=== PATIENT | female | born 1970 | race Caucasian/White ===

== ENCOUNTER 2018-07-05 21:41 | Emergency (ER) | payer OTHER, SELFPAY ==
[2018-07-05 21:55] VITALS: BP 134/56; PULSE 91; RESP 18; TEMP 36.7; O2SAT 100; BMI 22.6
[2018-07-05] MEDS: TRIMETH/SULFA 160/800 (DS) TABLET 1 TAB PO (22:43)
[2018-07-05 22:47] VITALS: PULSE 84; RESP 18; TEMP 37.1; O2SAT 100
--- NOTE | 2018-07-06 06:26 | ED_ITS ---
HPI - Female Genitourinary General Chief complaint: Urogenital-Female Stated complaint: thinks she has a UTI Time Seen by Provider: 07/05/18 22:12 Source: patient Mode of arrival: ambulatory Limitations: no limitations History of Present Illness HPI Narrative: 47-year-old former smoker otherwise healthy presents to the emergency department with a chief complaint of a day or 2 of gradually worsening burning, frequency and urgency. She denies any back pain nor fever or chills. She has had UTIs in the past and states this feels identical. She denies any vaginal bleeding or discharge. MD Complaint: dysuria and UTI Onset (ago): day(s) Severity: mild Quality: Burning Duration: constant Relieving factors: none Exacerbating factors: urination Urinary symptoms: Difficulty Urinating, Dysuria, Foul Smelling Urine and Urgency Associated symptoms: denies other symptoms Related Data Home Medications Medication Instructions Recorded Confirmed VIT#96/FERROUS FUM/FA #0 05/13/12 ( Tablet) cyclobenzaprine 10 mg PO HS #0 05/13/12 ondansetron HCl 4 mg PO Q4HP #0 05/13/12 meloxicam [Mobic] Q12H PRN #0 05/09/17 Previous Rx's Medication Instructions Recorded sulfamethoxazole-trimethoprim 1 tab PO BID #8 tab 05/09/17 sulfamethoxazole-trimethoprim 1 tab PO BID 3 Days #6 tab 07/05/18 [Bactrim DS] Allergies Allergy/AdvReac Type Severity Reaction Status Date / Time ERYTHROMYCIN Allergy Mild Uncoded 07/05/18 22:04 Review of Systems Review of Systems All systems reviewed & are unremarkable except as noted in HPI and below Constitutional Denies chills, Denies fever(s), Denies lethargy and Denies weakness Eyes Denies change in vision, Denies eye discharge, Denies irritation and Denies loss of vision ENT Ears, Nose, Mouth, and Throat: Denies change in voice, Denies neck pain and Denies sore throat Cardiovascular Denies chest pain, Denies irregular heart rhythm, Denies lightheadedness, Denies palpitations, Denies dyspnea, Denies dyspnea on exertion and Denies orthopnea Respiratory Denies cough, Denies dyspnea, Denies dyspnea on exertion and Denies wheezing Gastrointestinal Gastrointestinal: Denies abdominal pain, Denies change in bowel habits, Denies diarrhea, Denies nausea and Denies vomiting Genitourinary Denies hematuria, Reports urinary frequency, Reports dysuria, Denies flank pain , Denies urinary incontinence and Denies urinary urgency Musculoskeletal Denies neck pain Integumentary/Breasts Denies pruritus, Denies erythema, Denies rash and Denies wounds Neurologic Denies confusion, Denies loss of vision and Denies weakness Psychiatric Denies anxiety, Denies confusion, Denies depression, Denies homicidal ideation and Denies suicidal ideation Endocrine Denies palpitations Hematologic/Lymphatic Denies easy bruising Allergic/Immunologic Denies wheezing [facility] Social History Smoking Status: Former smoker Exam Narrative Exam Narrative: GEN: AOx3 and in mild distress EYES: Pupils are equal, round, and reactive to light and accommodation. Extraoccular muscles are intact bilaterally. There is no subconjunctival hemorrhage or exudate. CHEST: Lungs are clear to auscultation bilaterally and free of wheezes, rales, or rhonchi. Heart rate is regular rhythm, there are no murmurs, clicks, rubs, or gallops. There is no chest wall tenderness. ABD: Abdomen is soft and mildly tender in the suprapubic region. There is no guarding or rebound. Bowel sounds are normal in all 4 quadrants. There is no mass or organomegaly. EXT: Full painless ROM of all extremities with no loss of sensation or strength. SKIN: Warm, pink, and dry. No erythema or rash Initial Vital Signs Initial Vital Signs: Vital Signs Temperature 98.1 F 07/05/18 21:55 Pulse Rate 91 H 07/05/18 21:55 Respiratory Rate 18 07/05/18 21:55 Blood Pressure 134/56 L 07/05/18 21:55 Pulse Oximetry 100 07/05/18 21:55 Course Orders Ordered: Discontinued Medications Trimethoprim/Sulfamethoxazole (Bactrim Ds) 1 tab PO NOW ONE Stop: 07/05/18 22:21 Last Admin: 07/05/18 22:43 Dose: 1 tab Vital Signs - 8 hr 07/05/18 22:47 Temperature 98.7 F Pulse Rate 84 Respiratory Rate 18 Pulse Oximetry 100 MDM - Female Genitourinary Differential Diagnosis Likely urinary tract infection, bacterial vaginosis, trichomoniasis, cervicitis , ovarian cyst and vaginitis Medical Records Attestation: I reviewed the patient's medical records. Lab Data Attestation: I reviewed the patient's lab results. Point of Care Testing Test Results Negative Urine Dip Bedside Urine Glucose Negative Bedside Urine Bilirubin - Negative Bedside Urine Ketone - Negative Urine Specific [place] 1.015 Bedside Urine Occult Blood - Negative Bedside Urine pH 6.0 Bedside Urine Protein - Negative Bedside Urine Urobilinogen - Negative Bedside Urine Nitrite - Negative Bedside Urine Leukocytes - Negative Esterase MDM Narrative Medical decision making narrative: Patient has classic urinary tract infection symptoms including dysuria, frequency and urgency. Her urine is not the most compelling for UTI but given her history it seems reasonable to treat. She denies any pelvic discomfort or vaginal bleeding, discharge or itching. Discharge Plan Departure Patient Disposition: Home Clinical Impression: UTI (urinary tract infection) Discharge Date/Time: 07/05/18 22:48 Interventions: ED Discharge Assessment Last Done: 07/05/18 22:47 Instructions: DI for Urinary Tract Infection (UTI) Activity Restrictions/Additional Instructions: *You have been diagnosed with [ acute urinary tract infection ] *What to do: *Take medications as directed. Prescriptions have been electronically transmitted to [facility] in [place] *Follow up with your primary care provider in 2-3 days, call for an appointment. Let them know you were seen in the Emergency Department and that we ask that you be seen in follow up *Return to ER if you should have any new, worsening or concerning symptoms Prescriptions: New sulfamethoxazole-trimethoprim [Bactrim DS] 800-160 mg tablet 1 tab PO BID 3 Days Qty: 6 RF: 0 No Action ondansetron HCl 4 MG tablet 4 mg PO Q4HP Qty: 0 RF: 0 cyclobenzaprine 10 MG tablet 10 mg PO HS Qty: 0 RF: 0 VIT#96/FERROUS FUM/FA ( Tablet) Qty: 0 RF: 0 meloxicam [Mobic] 7.5 MG tablet Q12H PRNQty: 0 RF: 0 sulfamethoxazole-trimethoprim 800 MG/160 MG tablet 1 tab PO BID Qty: 8 RF: 0
== END 2018-07-05 22:48 | disposition home or self-care (01) ==
PROVIDERS: Emergency Provider Emergency Medicine
DX: N39.0 Urinary tract infection, site not specified (principal)
CPT/HCPCS: 81003; 81025; 99282; 99283

== ENCOUNTER 2019-09-05 05:57 | Emergency (ER) | payer OTHER, SELFPAY ==
[2019-09-05 06:05] VITALS: BP 119/68; PULSE 85; RESP 15; TEMP 37; O2SAT 97; BMI 21.4
--- NOTE | 2019-09-05 06:05 | ED.GENADULT ---
HPI - General Adult General Chief complaint: Urogenital-Female Stated complaint: poss UTI Time Seen by Provider: 09/05/19 05:59 Source: patient Mode of arrival: Ambulatory Limitations: no limitations History of Present Illness HPI narrative: 49-year-old female here for evaluation of a couple days of urinary burning, frequency, hesitancy. She has had urinary tract infections in the past. She states this feels like urinary tract infection. Back pain. No nausea vomiting. No fevers. No abdominal pain. Related Data Home Medications Medication Instructions Recorded Confirmed VIT#96/FERROUS FUM/FA #0 05/13/12 ( Tablet) cyclobenzaprine 10 mg PO HS #0 05/13/12 ondansetron HCl 4 mg PO Q4HP #0 05/13/12 meloxicam [Mobic] Q12H PRN #0 05/09/17 Previous Rx's Medication Instructions Recorded sulfamethoxazole-trimethoprim 1 tab PO BID #8 tab 05/09/17 nitrofurantoin monohyd/m-cryst 100 mg PO Q12H 5 Days #9 cap 09/05/19 [Macrobid] phenazopyridine [Pyridium] 100 mg PO TID PRN #6 tab 09/05/19 Allergies Allergy/AdvReac Type Severity Reaction Status Date / Time ERYTHROMYCIN Allergy Mild Uncoded 07/05/18 22:04 Review of Systems Constitutional Constitutional: Denies fever(s) Cardiovascular Cardiovascular: Denies chest pain Gastrointestinal Gastrointestinal: Denies abdominal pain, Denies nausea and Denies vomiting Genitourinary Genitourinary: Reports urinary frequency, Reports dysuria, Denies flank pain, Reports urinary urgency and Denies vaginal discharge Patient History Medical History UTI (urinary tract infection) (Inactive) Social History Smoking Status: Former smoker Smoking Status: Former smoker alcohol intake frequency: 0-2 drinks per day Substance Use Type: marijuana Exam Initial Vital Signs Initial Vital Signs: Vital Signs Temperature 98.6 F 09/05/19 06:05 Pulse Rate 85 09/05/19 06:05 Respiratory Rate 15 09/05/19 06:05 Blood Pressure 119/68 09/05/19 06:05 Pulse Oximetry 97 01/26/20 06:05 Const General: cooperative and healthy appearing Resp Effort & Inspection: normal respiratory effort Cardio Rate: regular rate Skin General: no rashes or lesions noted Neuro General: alert and awake Cognition: normal cognition Speech: speech normal Extrem General: normal to inspection and capillary refill normal Psych Appearance: grossly normal and well kempt Course Orders Ordered: ED Orders 09/05/19 06:10 Urine Culture Stat Urine Microscopic Stat Discontinued Medications Nitrofurantoin Macrocrystals (Macrobid 100 Mg Capsule) 100 mg PO NOW ONE Stop: 09/05/19 06:40 Phenazopyridine HCl (Pyridium) 100 mg PO NOW ONE Stop: 09/05/19 06:40 Vital Signs Vital signs: Vital Signs - 8 hr 09/05/19 06:05 Temperature 98.6 F Pulse Rate 85 Respiratory Rate 15 Blood Pressure 119/68 Pulse Oximetry 97 Medical Decision Making Lab Data Lab results reviewed: Yes I reviewed the patient's lab results. Labs: Lab Results 09/05/19 Range/Units 06:10 Urine RBC 0-1/hpf (0-5/HPF) Urine WBC 5-10/hpf H (0-5/HPF) Ur Squamous Epith Cells 0-1 /hpf (0-5/HPF) Urine Bacteria Many (>30) H (None) Ur Culture Indicated? Specimen cultured Point of Care Testing Test Results Negative Urine Dip Bedside Urine Glucose Negative Bedside Urine Bilirubin - Negative Bedside Urine Ketone - Negative Urine Specific [place] 1.015 Bedside Urine Occult Blood +/- Bedside Urine pH 6.0 Bedside Urine Protein - Negative Bedside Urine Urobilinogen - Negative Bedside Urine Nitrite - Negative Bedside Urine Leukocytes +/- 15 Esterase Point of care testing: Point of Care Testing Test Results Negative Urine Dip Bedside Urine Glucose Negative Bedside Urine Bilirubin - Negative Bedside Urine Ketone - Negative Urine Specific [place] 1.015 Bedside Urine Occult Blood +/- Bedside Urine pH 6.0 Bedside Urine Protein - Negative Bedside Urine Urobilinogen - Negative Bedside Urine Nitrite - Negative Bedside Urine Leukocytes +/- 15 Esterase MDM Narrative Medical decision making narrative: History, physical exam, UA consistent with UTI. Patient was given 1st dose of Pyridium and antibiotics here in the ER. Not consistent with pyelonephritis. Patient given return precautions and follow-up instructions. She expressed understanding and agreement plan. Discharge Plan Departure Patient Disposition: Home Clinical Impression: UTI (urinary tract infection) Qualifiers: Urinary tract infection type: acute cystitis Hematuria presence: without hematuria Qualified Code(s): N30.00 - Acute cystitis without hematuria Instructions: DI for Urinary Tract Infection (UTI) Activity Restrictions/Additional Instructions: Take the antibiotics as directed. Increase your fluid intake. Return to the emergency department for any new or worsening symptoms. Prescriptions: New phenazopyridine [Pyridium] 100 mg tablet 100 mg PO TID PRN (Reason: pain) Qty: 6 RF: 0 nitrofurantoin monohyd/m-cryst [Macrobid] 100 mg capsule 100 mg PO Q12H 5 Days Qty: 9 RF: 0 No Action ondansetron HCl 4 MG tablet 4 mg PO Q4HP Qty: 0 RF: 0 cyclobenzaprine 10 MG tablet 10 mg PO HS Qty: 0 RF: 0 VIT#96/FERROUS FUM/FA ( Tablet) Qty: 0 RF: 0 meloxicam [Mobic] 7.5 MG tablet Q12H PRNQty: 0 RF: 0 sulfamethoxazole-trimethoprim 800 MG/160 MG tablet 1 tab PO BID Qty: 8 RF: 0
[2019-09-05 06:27] LABS: RBC Urine 0-1/HPF (0-5/HPF); Squamous Epithelial Cell Urine 0-1 /HPF (0-5/HPF)
[2019-09-05 06:28] LABS: Bacteria Urine Many (>30); Culture Indicated Urine Specimen Cultured; WBC Urine 5-10/HPF (0-5/HPF)
[2019-09-05] MEDS: NITROFURANTOIN ER 100 MG CAPSULE PO (06:47)
[2019-09-05] MEDS: PHENAZOPYRIDINE 100 MG TABLET PO (06:47)
== END 2019-09-05 06:51 | disposition home or self-care (01) ==
PROVIDERS: Emergency Provider Emergency Medicine
DX: N30.00 Acute cystitis without hematuria (principal)
CPT/HCPCS: 81003; 81015; 81025; 87077; 87086; 87186; 99283

== ENCOUNTER 2019-09-15 09:16 | Day surgery (SDC) | payer OTHER, SELFPAY ==
--- NOTE | 2019-09-15 | PATH_ITS ---
[facility] Accession Number: [id number] . 01 Material submitted: . PART A: esophagus - ESOPHAGEAL BIOPSY PART B: duodenum - DUODENUM BIOPSIES . 01 Clinical history: . A: IRREGULAR Z-LINE (RULE OUT MADSEN'S) . 02 Diagnosis: A. Esophagus, Biopsy: Squamocolumnar junctional mucosa with no diagnostic abnormality. Negative for intestinal metaplasia. Negative for dysplasia and malignancy. . B. Duodenum, Biopsies: Duodenal mucosa with no diagnostic abnormality. Negative for active inflammation, features of sprue, dysplasia, or malignancy. . MRV 09/16/2019 1519 Local . 02 Electronically signed: . Sharee Whitten MD, Pathologist NPI- [id number] . 01 Gross description: . Part A: ESOPHAGEAL BIOPSY: Received in formalin is 1 fragment(s) of ruiz, soft tissue measuring 0.1 x 0.1 x 0.1 cm submitted entirely in 1 cassette(s) Part B: DUODENUM BIOPSIES: Received in formalin are 3 fragment(s) of ruiz, soft tissue measuring 0.1 x 0.1 x 0.1 cm to 0.3 x 0.1 x 0.1 cm submitted entirely in 1 cassette(s) /[facility] 09/15/2019 2234 Local . 02 Pathologist provided ICD-10: R10.9 . 02 CPT . 567266, [id number] Performed at: 01 [facility] [address], [place], [place] [id number] MD Jere Prasad MD Phone: [phone] Performed at: [facility] [address] [place], [place] [id number] MD Sharee Whitten MD Phone: [phone]
[2019-09-15 09:43] VITALS: BP 105/60; PULSE 64; RESP 16; TEMP 36.8; O2SAT 100; BMI 21.7
[2019-09-15] MEDS: SODIUM CHLORIDE 0.9% 1,000 ML 84 ML IV (10:52)
--- NOTE | 2019-09-15 11:54 | PM.HP.1 ---
History of Present Illness History of Present Illness Chief complaint: [id number] Patient History Family & Social History Social History: household members spouse Tobacco & Substance use: Tobacco type cigarettes Smoking Status Current some day smoker alcohol intake never alcohol intake frequency 0-2 drinks per day Substance Use Type marijuana Meds Home Medications and Allergies Home Medications Medication Instructions Recorded Confirmed Type meloxicam [Mobic] 7.5 mg PO Q12H PRN #0 05/09/17 09/15/19 History Allergies Allergy/AdvReac Type Severity Reaction Status Date / Time erythromycin base Allergy Mild Verified 09/15/19 09:49 Review of Systems Review of Systems ROS: Yes All systems reviewed with the patient and are negative except as otherwise documented Exam Vital Signs (past 8 hours): - 09/15/19 09:43 Temperature 98.2 F Pulse Rate 64 Respiratory Rate 16 Blood Pressure 105/60 Pulse Oximetry 100 Oxygen Delivery Method Room Air Narrative Exam Narrative: Awake alert and oriented x3, no acute distress, lungs clear to auscultation bilaterally, heart regular rate and rhythm, no lower extremity edema Assessment & Plan Assessment & Plan narrative: Right upper quadrant pain, for EGD today
[2019-09-15] MEDS: MIDAZOLAM 5 MG/5 ML VIAL IV (12:00)
[2019-09-15] MEDS: fentaNYL 250 MCG/5 ML INJ IV (12:00)
[2019-09-15 12:12] VITALS: BP 93/53; PULSE 59; RESP 38; TEMP 36.7; O2SAT 95
--- NOTE | 2019-09-15 12:16 | PM.OP.ENDO ---
Operative Date/Time/Diagnoses Date of procedure: 09/15/19 Procedure & Clinicians Study performed: EGD with biopsy Moderate conscious sedation was administered by the endoscopy nurse and supervised by the endoscopist. The following parameters were monitored: Oxygen saturation, heart rate, blood pressure, and response to care. Sedation total: 5 mg midazolam, 100 mcg fentanyl Indications: Right upper quadrant pain Procedure Notes Procedure in detail: Prior to the procedure, history and physical was performed, and patient medications and allergies were reviewed. Preprocedure nursing history and assessment was reviewed. Patient identification and proposed procedure were verified by the physician and nurse in the procedure room. The physical status of the patient was reassessed after the procedure. After informed consent was obtained including risks, benefits, and alternatives, the scope was passed under direct vision. Throughout the procedure, the patient's blood pressure, pulse, and oxygen saturations were monitored continuously. The upper endoscope was introduced through the mouth and advanced to the 2nd portion of the duodenum. Retroflexion was performed in the stomach. The patient tolerated the procedure well. There was an 8 mm tongue of salmon-colored mucosa extending beyond the Z-line which was otherwise regular. This was biopsied to exclude Pérez's esophagus The remainder of the esophagus was normal appearing The entire stomach was normal appearing The entire examined duodenum was normal appearing. Biopsies taken to exclude celiac sprue Impression: Normal esophagus except for an Irregular Z-line. Biopsies taken to rule out Pérez's esophagus Normal appearing stomach Normal appearing examined duodenum. Biopsies to rule out celiac sprue Sedation minutes: 10 Complications: other (EBL minimal. No complications) Post-procedure Plan for aftercare: Follow-up pathology results Resume previous diet Resume home medications Return to GI clinic as previously scheduled Discharge home with escort
[2019-09-15 12:17] VITALS: BP 90/53; PULSE 55; RESP 27; O2SAT 96
[2019-09-15 12:22] VITALS: BP 87/53; PULSE 56; RESP 20; O2SAT 96
[2019-09-15 12:32] VITALS: BP 90/53; PULSE 61; RESP 14; O2SAT 99
[2019-09-15 12:51] VITALS: BP 100/62; PULSE 60; RESP 15; TEMP 36.8; O2SAT 100
== END 2019-09-15 12:56 | disposition home or self-care (01) ==
PROVIDERS: PCP Registered Nurse Diabetes Educator; Referring Provider Internal Medicine; Visit Provider Internal Medicine
PROC: 0DJ08ZZ Inspection of Upper Intestinal Tract, Via Natural or Artificial Opening Endoscopic (ICD-10-PCS; CPT 43235; principal; 2019-09-15 11:00)
DX: R10.11 Right upper quadrant pain (principal)
CPT/HCPCS: 43239; J2250; J3010

== ENCOUNTER 2019-10-06 08:57 | Day surgery (SDC) | payer OTHER, SELFPAY ==
[2019-10-06 09:36] VITALS: BP 101/66; PULSE 71; RESP 16; TEMP 37.1; O2SAT 100; BMI 21.6
[2019-10-06] MEDS: SODIUM CHLORIDE 0.9% 1,000 ML 42 ML IV (09:55)
--- NOTE | 2019-10-06 10:14 | PM.HP.1 ---
History of Present Illness History of Present Illness Date Patient Seen: 10/06/19 Chief complaint: [id number] Narrative: Colorectal cancer screening Patient History Family & Social History Social History: household members spouse Tobacco & Substance use: Tobacco type cigarettes Smoking Status Current some day smoker alcohol intake never alcohol intake frequency 0-2 drinks per day Substance Use Type marijuana Meds Home Medications and Allergies Home Medications Medication Instructions Recorded Confirmed Type meloxicam [Mobic] 7.5 mg PO Q12H PRN #0 05/09/17 10/06/19 History Allergies Allergy/AdvReac Type Severity Reaction Status Date / Time erythromycin base Allergy Mild Verified 10/06/19 09:32 Exam Vital Signs (past 8 hours): - 10/06/19 09:36 Temperature 98.8 F Pulse Rate 71 Respiratory Rate 16 Blood Pressure 101/66 Pulse Oximetry 100 Oxygen Delivery Method Room Air Narrative Exam Narrative: Oropharynx free of lesions Chest clear to auscultation percussion Cardiac exam reveals no S3 or murmur Assessment & Plan Assessment & Plan narrative: Need for colorectal cancer screening. Risks benefits alternatives been explained.
--- NOTE | 2019-10-06 10:16 | PM.OP.ENDO ---
Operative Date/Time/Diagnoses Date of procedure: 10/06/19 Pre-op diagnosis: See indication and findings Procedure & Clinicians Study performed: Colonoscopy Same procedure as scheduled: Yes Indications: Abdominal discomfort constipation and need for colorectal cancer screening Surgeon: Gaby Balderrama Procedure Notes Procedure in detail: After informed consent was obtained the patient was placed in left lateral decubitus position. The video colonoscope was introduced the rectum slowly advanced to terminal ileum. Preparation was good. On slow withdrawal mucosa was carefully examined. The scope was removed. The patient told procedure well. Blood loss none Complications none Sedation Total sedation time 18 minutes Versed 6 mg fentanyl 150 mg IV titration Findings 1. Normal colonoscopy to cecum 2. Normal terminal ileum 3. [id number] internal hemorrhoids Patient will follow up in the office as needed. She will need follow-up colonoscopy in 10 years.
[2019-10-06] MEDS: fentaNYL 250 MCG/5 ML INJ IV (10:51)
[2019-10-06] MEDS: MIDAZOLAM 5 MG/5 ML VIAL IV (10:52)
[2019-10-06 11:15] VITALS: BP 86/49; PULSE 58; RESP 8; TEMP 36.4; O2SAT 97
[2019-10-06 11:20] VITALS: BP 88/56; PULSE 58; RESP 12; TEMP 36.5; O2SAT 97
[2019-10-06 11:26] VITALS: BP 91/47; PULSE 53; RESP 12; O2SAT 99
[2019-10-06 11:51] VITALS: BP 96/61; PULSE 57; RESP 16; TEMP 36.3; O2SAT 100
--- NOTE | 2019-10-06 11:53 | SUR.PHASEII ---
Discharged patient home with in stable condition. VSS. All belongings returned to patient.
[2019-10-06 13:38] VITALS: BP 115/69; PULSE 60; RESP 16; O2SAT 97
== END 2019-10-06 12:01 | disposition home or self-care (01) ==
PROVIDERS: PCP Registered Nurse Diabetes Educator; Referring Provider Internal Medicine Gastroenterology; Visit Provider Internal Medicine Gastroenterology
PROC: 0DJD8ZZ Inspection of Lower Intestinal Tract, Via Natural or Artificial Opening Endoscopic (ICD-10-PCS; CPT 45378; principal; 2019-10-06 10:30)
DX: K59.00 Constipation, unspecified (principal); R10.9 Unspecified abdominal pain; K64.8 Other hemorrhoids
CPT/HCPCS: 45378; J2250; J3010

== ENCOUNTER 2019-11-20 13:36 | Emergency (ER) | payer OTHER, SELFPAY ==
[2019-11-20 13:42] VITALS: BP 136/63; PULSE 74; RESP 18; TEMP 36.6; O2SAT 99
[2019-11-20 13:54] LABS: Appearance Urine UA CLEAR; Bilirubin Urine UA NEGATIVE (NEGATIVE); Color Urine UA YELLOW; Glucose Urine UA NEGATIVE (Negative); Ketones Urine UA NEGATIVE (NEGATIVE); Leukocyte Esterase Urine UA TRACE (NEGATIVE); Nitrite Urine UA NEGATIVE (Negative); Occult Blood Urine UA 3+ (Negative); Protein Urine UA NEGATIVE (Negative); Specific Gravity Urine UA <=1.005 (1.000-1.035); Urobilinogen Urine UA 0.2 E.U./dL (0.2)
[2019-11-20 13:58] LABS: Pregnancy Test Urine Negative (Negative)
[2019-11-20 14:01] LABS: RBC Urine 1-5/HPF (0-5/HPF); Squamous Epithelial Cell Urine 0-1 /HPF (0-5/HPF); WBC Urine 5-10/HPF (0-5/HPF); pH Urine UA 6.5 (4.5-8.0)
[2019-11-20 14:02] LABS: Bacteria Urine Occasional (0-1); Culture Indicated Urine Specimen Cultured
--- NOTE | 2019-11-20 14:30 | ED.FEMALEGU ---
HPI - Female Genitourinary <ASHLEY Jackson - Last Filed: 11/20/19 15:11> General Chief complaint: Urogenital-Female Stated complaint: UTI symptoms Time Seen by Provider: 11/20/19 13:38 Source: patient Mode of arrival: Ambulatory Limitations: no limitations History of Present Illness HPI Narrative: 49-year-old female presenting to the emergency department complaining of dysuria and increased urinary frequency that started 2 days ago. Patient states she has for great urinary tract infections, last 1 was a few months ago. She states she was given Macrobid which helped. Patient denies any fevers, chills, nausea, vomiting, diarrhea, chest pain, shortness of breath, flank pain, or any other concerns. She denies . Related Data Previous Rx's Medication Instructions Recorded nitrofurantoin monohyd/m-cryst 100 mg PO Q12H 7 Days #14 cap 11/20/19 [Macrobid] Allergies Allergy/AdvReac Type Severity Reaction Status Date / Time erythromycin base Allergy Mild Verified 11/20/19 13:44 Review of Systems <ASHLEY Jackson - Last Filed: 11/20/19 15:11> Review of Systems Narrative: REVIEW OF SYSTEMS: GENERAL: Denies fever or chills. HENT: No head trauma. CARDIOVASCULAR: No chest pain. RESPIRATORY: No shortness of breath or cough. GASTROINTESTINAL: No nausea, vomiting, or abdominal pain, see HPI. GENITOURINARY: Reports dysuria, See HPI. No vaginal discharge or dyspareunia. Denies concerns for STIs MUSCULOSKELETAL: No trauma. INTEGUMENTARY: No rash, lesions, or pruritus. NEURO: No memory loss or confusion. Patient History <ASHLEY Jackson - Last Filed: 11/20/19 15:11> Medical History UTI (urinary tract infection) (Inactive) alcohol intake frequency: 0-2 drinks per day Substance Use Type: marijuana Exam <ASHLEY Jackson - Last Filed: 11/20/19 15:11> Initial Vital Signs Initial Vital Signs: Vital Signs Temperature 97.9 F 11/20/19 13:42 Pulse Rate 74 11/20/19 13:42 Respiratory Rate 18 11/20/19 13:42 Blood Pressure 136/63 04/11/20 13:42 Pulse Oximetry 99 11/20/19 13:42 PHYSICAL EXAMINATION: GENERAL: Well groomed, alert, and cooperative. Answers questions promptly and appropriately. Vital signs noted. HENT: Normocephalic, atraumatic. Hearing intact. EYES: No periorbital swelling. CARDIOVASCULAR: Regular rate. RESPIRATORY: Normal respiratory rate, trachea midline, airway patent. No stridor, nasal flaring or accessory muscle use. GASTROINTESTINAL: Bowel sounds normoactive. Abdomen is soft and non-tender. No organomegaly, no palpable masses. GENITALURINARY: No CVA tenderness. MUSCULOSKELETAL: Normal gait and coordination. Equal tone and mass bilaterally. SKIN: Warm, dry, soft, appropriate color for ethnicity. No lesions, rashes, or wounds to visulized areas. NEURO: Alert and Oriented X 3. Good coordination. No ataxia, or sensory deficits, or cognitive issues. PSYCH: Appropriate affect and mood. <Yolanda Grant MD - Last Filed: 11/20/19 16:53> Initial Vital Signs Initial Vital Signs: Vital Signs Temperature 97.9 F 11/20/19 13:42 Pulse Rate 74 11/20/19 13:42 Respiratory Rate 18 11/20/19 13:42 Blood Pressure 136/63 11/20/19 13:42 Pulse Oximetry 99 11/20/19 13:42 Course <ASHLEY Jackson - Last Filed: 11/20/19 15:11> Orders Ordered: ED Orders 11/20/19 13:42 Test Urine Stat Urinalysis and Microscopic Stat Urine Culture Stat Vital Signs Vital signs: Vital Signs - 8 hr 11/20/19 13:42 Temperature 97.9 F Pulse Rate 74 Respiratory Rate 18 Blood Pressure 136/63 Pulse Oximetry 99 <Yolanda Grant MD - Last Filed: 11/20/19 16:53> Orders Ordered: ED Orders 11/20/19 13:42 Test Urine Stat Urinalysis and Microscopic Stat Urine Culture Stat Vital Signs Vital signs: Vital Signs - 8 hr 11/20/19 13:42 Temperature 97.9 F Pulse Rate 74 Respiratory Rate 18 Blood Pressure 136/63 Pulse Oximetry 99 MDM - Female Genitourinary <ASHLEY Jackson - Last Filed: 11/20/19 15:11> Medical Records Attestation: I reviewed the patient's medical records. Lab Data Attestation: I reviewed the patient's lab results. Labs: Lab Results 11/20/19 11/20/19 Range/Units 13:42 13:42 Urine Color Yellow Urine Appearance Clear Urine pH 6.5 (4.5-8.0) Ur Specific Stella <=1.005 (1.000-1.035) Urine Protein Negative (Negative) Urine Glucose (UA) Negative (Negative) g/dL Urine Ketones Negative (NEGATIVE) Urine Occult Blood 3+ H (Negative) Urine Nitrate Negative (Negative) Urine Bilirubin Negative (NEGATIVE) Urine Urobilinogen 0.2 (0.2) E.U./dL Ur Leukocyte Esterase Trace H (NEGATIVE) Urine RBC 1-5/hpf (0-5/HPF) Urine WBC 5-10/hpf H (0-5/HPF) Ur Squamous Epith Cells 0-1 /hpf (0-5/HPF) Urine Bacteria Occasional (0-1) D (None) Ur Culture Indicated? Specimen cultured Urine Test Negative (Negative) MDM Narrative Medical decision making narrative: And examination are consistent with a urinary tract infection. Urinalysis showed blood, leukocytes, and small amount of bacteria, this is consistent with patient's symptoms. Last culture was sensitive to Macrobid. Patient was prescribed Macrobid. She was encouraged to increase fluids and follow up with her primary care provider if she continues to have frequent urinary tract infections. Return precautions given for new or worsening symptoms. Patient agreed to plan of care verbalized understanding. <Yolanda Grant MD - Last Filed: 11/20/19 16:53> Lab Data Labs: Lab Results 11/20/19 11/20/19 Range/Units 13:42 13:42 Urine Color Yellow Urine Appearance Clear Urine pH 6.5 (4.5-8.0) Ur Specific Stella <=1.005 (1.000-1.035) Urine Protein Negative (Negative) Urine Glucose (UA) Negative (Negative) g/dL Urine Ketones Negative (NEGATIVE) Urine Occult Blood 3+ H (Negative) Urine Nitrate Negative (Negative) Urine Bilirubin Negative (NEGATIVE) Urine Urobilinogen 0.2 (0.2) E.U./dL Ur Leukocyte Esterase Trace H (NEGATIVE) Urine RBC 1-5/hpf (0-5/HPF) Urine WBC 5-10/hpf H (0-5/HPF) Ur Squamous Epith Cells 0-1 /hpf (0-5/HPF) Urine Bacteria Occasional (0-1) D (None) Ur Culture Indicated? Specimen cultured Urine Test Negative (Negative) Discharge Plan Departure Patient Disposition: Home Clinical Impression: Urinary tract infection Qualifiers: Urinary tract infection type: acute cystitis Hematuria presence: with hematuria Qualified Code(s): N30.01 - Acute cystitis with hematuria Discharge Date/Time: 11/20/19 14:24 Instructions: DI for Urinary Tract Infection (UTI) Activity Restrictions/Additional Instructions: Thank you for entrusting me with your care today. As discussed, your urine test shows that you have a urinary tract infection. I prescribed you an antibiotic, please take this as directed, please complete the entire course even if you are feeling better. This helps prevent the infection from reoccurring. Your prescription was sent to [facility] in [place]. We have sent your urine down to the lab for a culture, this ensures that the antibiotics will work for the infection that you have. If a changes needed, you will receive a phone call in approximately 2 days. Follow up with your primary care provider in the next few weeks especially if you are finding that you are getting more than 3 urinary tract infections a year. Return to the emergency department for any new or worsening symptoms such as severe pain, pain that is worse on the right or left side of your back, uncontrollable vomiting, high fevers, or any other concerns. Prescriptions: New nitrofurantoin monohyd/m-cryst [Macrobid] 100 mg capsule 100 mg PO Q12H 7 Days Qty: 14 RF: 0 Referrals: Michael Bolanos ARNP [Primary Care Provider] - <Yolanda Grant MD - Last Filed: 11/20/19 16:53> Cosign ED Attending Cosignature Attestation: I was immediately available in the department for consultation throughout this patient's visit. I agree with documentation as above. Yolanda Grant MD
== END 2019-11-20 14:24 | disposition home or self-care (01) ==
PROVIDERS: Emergency Provider Nurse Practitioner; PCP Registered Nurse Diabetes Educator
DX: N30.01 Acute cystitis with hematuria (principal)
CPT/HCPCS: 81001; 81025; 87086; 99281; 99282